=== PATIENT | male | born 1965 | race Caucasian/White ===

== ENCOUNTER 2019-06-24 05:14 | Day surgery (SDC) | payer OTHER ==
[2019-06-24 06:14] VITALS: BMI 21.1
[2019-06-24] MEDS ORDERED: SODIUM CHLORIDE 1,000 ML IV STA (07:11)
--- NOTE | 2019-06-24 08:06 | PDOC ---
History of Present Illness - General History Source: Patient Exam Limitations: No Limitations - History of Present Illness Initial Comments: 06/24/19 08:00 Patient is a 53-year-old male with no past medical history who presents to the ED with complaint of left lower abdominal and left groin pain that started several days ago. He states the pain was initially for a couple hours and resolved on its own. He had the pain again yesterday and it resolved again. Then the pain started again and has not resolved since. He denies any fevers or chills. He denies any radiation of his pain. He denies any pain in his testicles. He denies hematuria, dysuria, urgency or frequency. He has not taken anything for his pain. <Iesha Restrepo - Last Filed: 06/24/19 12:06> <Alvin Nunez - Last Filed: 06/24/19 15:29> - General Chief Complaint: Pain Stated Complaint: GROIN PAIN Time Seen by Provider: 06/24/19 07:07 Past History - Past Medical History COPD: No - Immunization History Immunization Up to Date: Yes - Psycho Social/Smoking Cessation Hx Smoking History: Never smoked Number of Cigarettes Smoked Daily: 0 Hx Alcohol Use: No Drug/Substance Use Hx: No Substance Use Type: None Hx Substance Use Treatment: No <Iesha Restrepo - Last Filed: 06/24/19 12:06> <Alvin Nunez - Last Filed: 06/24/19 15:29> - Past Medical History Allergies/Adverse Reactions: Allergies Allergy/AdvReac Type Severity Reaction Status Date / Time No Known Allergies Allergy Verified 06/24/19 07:55 Home Medications: Ambulatory Orders NK [No Known Home Medication] 06/24/19 Review of Systems - Review of Systems Comments:: 06/24/19 08:06 - Review of Systems Able to Perform ROS?: Yes Constitutional: No: Fever, Chills, Loss of Appetite, Night Sweats, Weakness HEENTM: No: Eye Pain, Vision changes, Ear Pain, Throat Pain, Throat Swelling, Mouth Pain, Difficulty Swallowing Respiratory: No: Cough, Shortness of Breath, Wheezing, Sputum Production Cardiac (ROS): No: Chest Pain, Chest Tightness, Palpitations, Irregular Heart Beat, Edema ABD/GI: No: Nausea, Vomiting, Diarrhea; positive left lower quadrant and left groin pain : No Dysuria, No Hematuria, No Frequency, No Urgency, No Penile Discharge/Pain Musculoskeletal: No: Muscle Pain, Back Pain, Joint Pain, Muscle Weakness, Neck Pain Integumentary: No: Lesions, Rash Neurological: No: Headache, Numbness, Tingling, Weakness, Speech Difficulties <KayeIesha D - Last Filed: 06/24/19 12:06> *Physical Exam - Vital Signs Last Vital Signs Temp Pulse Resp BP Pulse Ox 98.2 F 90 14 129/81 96 06/24/19 05:55 06/24/19 05:55 06/24/19 05:55 06/24/19 05:55 06/24/19 05:55 - Physical Exam 06/24/19 08:07 - Physical Exam General Appearance: Nourished, Appropriately Dressed, No Distress HEENT: EOMI, Normal Voice, No Pharyngeal Erythema, No Muffled/Hoarse voice, No Tonsillar Exudate, No Tonsillar Erythema, No Nasal Congestion, No Rhinorrhea, Hearing Grossly Normal, TMs Normal, No TM Bulging, No TM Dullness, No TM Erythema Neck: Supple, No Lymphadenopathy (R), No Lymphadenopathy (L), No Rigidity, No Decreased range of motion Respiratory/Chest: Lungs Clear, Normal Breath Sounds. No Respiratory Distress, No Accessory Muscle Use Cardiovascular: Regular Rhythm, Regular Rate, S1, S2 Gastrointestinal/Abdominal: Normal Bowel Sounds, Soft. No Guarding, No Rebound , No Rigidity; mild left lower quadrant and left groin tenderness to palpation. No tenderness to the left testicle and no masses palpated. No hernias appreciated. No CVA tenderness bilaterally. Musculoskeletal: Normal Inspection. No Decreased Range of Motion Extremity: Normal Capillary Refill, Normal Inspection Integumentary: Normal Color, Dry. 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 intact, Fully Oriented, Alert, Normal Mood/Affect, Normal Response <Iesha Restrepo - Last Filed: 06/24/19 12:06> - Vital Signs Last Vital Signs Temp Pulse Resp BP Pulse Ox 98.4 F 94 H 18 115/77 98 06/24/19 14:35 06/24/19 14:35 06/24/19 14:35 06/24/19 14:35 06/24/19 14:35 <Alvin Nunez - Last Filed: 06/24/19 15:29> ED Treatment Course - LABORATORY CBC & Chemistry Diagram: 06/24/19 07:44 06/24/19 07:44 - RADIOLOGY Radiology Studies Ordered: Category Date Time Status ABDOMEN & PELVIS CT WITH CONTR [CT] Stat CT Scan 06/24/19 07:12 Ordered <Iesha Restrepo - Last Filed: 06/24/19 12:06> - LABORATORY CBC & Chemistry Diagram: 06/24/19 07:44 06/24/19 07:44 - ADDITIONAL ORDERS Additional order review: Laboratory Results 06/24/19 06/24/19 06/24/19 07:44 07:44 07:44 Sodium 140 Potassium 4.2 Chloride 104 Carbon Dioxide 31 Anion Gap 5 L BUN 18.0 Creatinine 1.0 Est GFR (CKD-EPI)AfAm 97.77 Est GFR (CKD-EPI)NonAf 84.35 Random Glucose 106 Calcium 9.3 Total Bilirubin 0.5 AST 22 ALT 22 Alkaline Phosphatase 54 Total Protein 7.8 Albumin 4.0 Lipase 193 Urine Color Yellow Urine Appearance Clear Urine pH 5.5 Ur Specific [place] 1.015 Urine Protein Negative Urine Glucose (UA) Negative Urine Ketones Negative Urine Blood 3+ H Urine Nitrite Negative Urine Bilirubin Negative Urine Urobilinogen 0.2 Ur Leukocyte Esterase Negative Urine WBC (Auto) 1 Urine RBC (Auto) 78 Urine Casts (Auto) 1 U Epithel Cells (Auto) 0.1 Urine Bacteria (Auto) 2.7 06/24/19 07:44 RBC 5.17 MCV 90.1 MCHC 35.1 RDW 12.1 MPV 7.9 D Neutrophils % 73.2 Lymphocytes % 17.3 Monocytes % 8.8 Eosinophils % 0.4 D Basophils % 0.3 - Medications Given in the ED: ED Medications Discontinued Medications Generic Name Dose Route Start Last Admin Trade Name Freq PRN Reason Stop Dose Admin Sodium Chloride 1,000 mls @ 1,000 mls/hr 06/24/19 07:11 06/24/19 07:50 Normal Saline - IV 06/24/19 08:10 1,000 mls/hr ASDIR STA Administration <Alvin Nunez - Last Filed: 06/24/19 15:29> Medical Decision Making - Medical Decision Making 06/24/19 08:07 Assessment: Patient is a 53-year-old male who presents to the ED with left lower quadrant and left groin pain for the last several days. Plan: -Labs ordered -CT with contrast ordered -Will reassess 06/24/19 09:40 The patient has been made aware that his labs are all stable. He does have some blood in his urine but otherwise there is no infection. The patient's pain is okay at this time and he is declining pain medications. We will wait for CT scan for further evaluation. 06/24/19 11:06 Patient has been made aware that his CT scan shows an 8 mm stone with mild hydronephrosis and partially obstructing in the left distal ureter just proximal to the UVJ. The patient continues to decline pain medications at this time. patient services assistant urology has been paged to discuss the case. 06/24/19 12:06 We have spoken to Dr. Guzman of urology and he suggests the patient stay for possible stent placement vs lithotripsy. The patient agrees to stay in the hospital for this procedure. He has been made NPO. He has been made aware that he will go for the procedure and then likely be discharged after recovery this evening. The patient understands and agrees with this treatment and plan and he is stable for admission under Dr. Guzman' service. <Iesha Restrepo - Last Filed: 06/24/19 12:06> - Medical Decision Making 06/24/19 15:29 I reviewed the case of the mid-level practitioner and was available for consultation while in the emergency department <Alvin Nunez - Last Filed: 06/24/19 15:29> Discharge - Discharge Information Problems reviewed: Yes - Admission Yes <Iesha Restrepo - Last Filed: 06/24/19 12:06> <Alvin Nunez - Last Filed: 06/24/19 15:29> - Discharge Information Clinical Impression/Diagnosis: Ureterovesical junction (UVJ) obstruction Condition: Stable
[2019-06-24 08:33] LABS: BASO % 0.3 % (0-2.0); EOS % 0.4 % (0-4.5); HEMATOCRIT 46.6 % (35.4-49); HEMOGLOBIN 16.3 GM/dL (11.7-16.9); LYMPH % 17.3 % (8-40); MCH 31.6 pg (25.7-33.7); MCHC 35.1 g/dl (32.0-35.9); MEAN CELL VOLUME 90.1 fl (80-96); MEAN PLT VOLUME 7.9 fl (7.5-11.1); MONO % 8.8 % (3.8-10.2); NEUT % 73.2 % (42.8-82.8); PLATELET COUNT 343 K/MM3 (134-434); RBC 5.17 M/mm3 (4.00-5.60); RDW 12.1 % (11.9-15.9); WHITE BLOOD COUNT 8.4 K/mm3 (4.0-10.0)
[2019-06-24 08:41] LABS: BILIRUBIN,TOTAL 0.5 mg/dL (0.2-1); CALCIUM 9.3 mg/dL (8.5-10.1); POTASSIUM 4.2 mmol/L (3.5-5.1); TOT PROT 7.8 g/dl (6.4-8.2)
[2019-06-24 09:25] LABS: EPI CELLS 0.1 /HPF (0-5/HPF); HYALINE CASTS 1 /lpf (0-8); PH,URINE 5.5 (5.0-8.0); URINE APPEARANCE CLEAR; URINE BACTERIA 2.7 /hpf (NEGATIVE); URINE BILIRUBIN NEGATIVE (NEGATIVE); URINE COLOR YELLOW; URINE GLUCOSE (UA) NEGATIVE (NEGATIVE); URINE KETONE NEGATIVE (NEGATIVE); URINE LEUK ESTERASE NEGATIVE (NEGATIVE); URINE NITRITE NEGATIVE (NEGATIVE); URINE PROTEIN NEGATIVE (NEGATIVE); URINE RBC 78 /hpf (0-4); URINE UROBILINOGEN 0.2 mg/dL (0.2-1.0); URINE WBC 1 /hpf (0-5)
[2019-06-24] MEDS ORDERED: SODIUM CHLORIDE 0.9% 1000 ML INFUS.BAG IV SCH (14:45)
--- NOTE | 2019-06-24 15:14 | CON.GU ---
Consult Consult Specialty:: Referred by:: Enrique Reason for Consultation:: L ureteral calculus - History of Present Illness Chief Complaint: LLQ pain History of Present Illness: 53-year-old male with no past medical history who presents to the ED with complaint of left lower abdominal and left groin pain that started several days ago. He states the pain was initially for a couple hours and resolved on its own. He had the pain again yesterday and it resolved again. Then the pain started again and has not resolved since. He denies any fevers or chills. He denies any radiation of his pain. He denies any pain in his testicles. He denies hematuria, dysuria, urgency or frequency. He has not taken anything for his pain. cons req. - History Source History Provided By: Patient, Medical Record - Alcohol/Substance Use Hx Alcohol Use: No - Smoking History Smoking history: Never smoked Aproximately how many cigarettes per day: 0 Home Medications - Allergies Allergies/Adverse Reactions: Allergies Allergy/AdvReac Type Severity Reaction Status Date / Time No Known Allergies Allergy Verified 06/24/19 07:55 - Home Medications Home Medications: Ambulatory Orders NK [No Known Home Medication] 06/24/19 Review of Systems - Review of Systems Genitourinary: reports: Flank Pain Physical Exam- Vital Signs: Vital Signs Temperature 98.4 F 06/24/19 14:35 Pulse Rate 94 H 06/24/19 14:35 Respiratory Rate 18 06/24/19 14:35 Blood Pressure 115/77 06/24/19 14:35 O2 Sat by Pulse Oximetry (%) 98 06/24/19 14:35 Gastrointestinal: Yes: Soft, Tenderness, Rebound (LLQ) Kidneys: Yes: Flank Pain Left Pelvis: Yes: WNL Testicles: Yes: WNL Scrotum: Yes: WNL Penis: Yes: WNL Prostate Exam: Yes: WNL Labs: CBC, BMP 06/24/19 07:44 06/24/19 07:44 Imaging - Results Cat Scan: Report Reviewed, Image Reviewed Problem List - Problems (1) Ureteral calculus Assessment/Plan: rx tamsulosin, L ureteroscopic laser lithotripsy and JJ stent insertion Code(s): N20.1 - CALCULUS OF URETER (2) Hydronephrosis concurrent with and due to calculi of kidney and ureter Code(s): N13.2 - HYDRONEPHROSIS WITH RENAL AND URETERAL CALCULOUS OBSTRUCTION
--- NOTE | 2019-06-24 15:21 | OP ---
Operative Note - Note: Operative Date: 06/24/19 Pre-Operative Diagnosis: L ureteral calculus, L hydronephrosis Operation: L ureteroscopic laser lithotripsy and JJ stent insertion Findings: 8 mm L distal ureteral calculus, mild L hydronephrosis Post-Operative Diagnosis: Same as Pre-op Surgeon: Jimmie Guzman Anesthesiologist/BANKING OFFICER: Hermann Walton Anesthesia: General Specimens Removed: L ureteral calculus Estimated Blood Loss (mls): 0 Drains & Tubes with Location: 6 fr 26 cm L JJ stent Operative Report Dictated: Yes
[2019-06-24] MEDS ORDERED: PROPOFOL 20 ML ONE (15:32)
[2019-06-24] MEDS ORDERED: MIDAZOLAM HCL 2 MG/2 ML SINGLE DOSE VIAL ONE (15:33)
[2019-06-24] MEDS ORDERED: LIDOCAINE HCL/PF 2% SDV 5ML VIAL ONE ×2 (15:34→15:42)
[2019-06-24] MEDS ORDERED: SODIUM CHLORIDE 0.9% P/F 10 ML VIAL IJ ONE (15:46)
[2019-06-24] MEDS ORDERED: ceFAZolin SODIUM 1 GM VIAL ONE (15:46)
[2019-06-24] MEDS ORDERED: DEXAMETHASONE SOD PHOSPHATE 4 MG/1 ML VIAL ONE (15:50)
[2019-06-24] MEDS ORDERED: KETOROLAC TROMETHAMINE 30 MG/1 ML VIAL ONE (15:59)
[2019-06-24] MEDS ORDERED: ceFAZolin SODIUM 1 GM VIAL IVPB ONE (16:01)
[2019-06-24] MEDS ORDERED: ONDANSETRON 4 MG/2 ML VIAL IVPUSH PRN (16:46)
[2019-06-24] MEDS ORDERED: PROMETHAZINE HCL 25 MG/1 ML VIAL IVPUSH PRN (16:46)
[2019-06-24] MEDS ORDERED: LACTATED RINGERS SOLUTION 1,000 ML IV SCH (17:00)
--- NOTE | 2019-06-24 17:27 | OP ---
DATE OF OPERATION: 06/24/2019 PREOPERATIVE DIAGNOSIS: Left ureteral calculus, left hydronephrosis. POSTOPERATIVE DIAGNOSIS: Left ureteral calculus, left hydronephrosis. PROCEDURE: Left ureteroscopic laser lithotripsy and Double J stent insertion. SURGEON: Jimmie Estrada MD. SEROLOGY TEACHER: None. ANESTHESIA: General via laryngeal mask. ANESTHESIOLOGIST: Hermann Walton MD. SPECIMENS: Left ureteral calculi. CULTURES: None. DRAINS: 6 Norwegian 26-cm left Double J stent. ESTIMATED BLOOD LOSS: None. COMPLICATIONS: None. DESCRIPTION OF PROCEDURE: Patient was brought in the operating room, placed on the operating table in the supine position. After administration of general anesthesia via laryngeal mask, intravenous antibiotics were administered. Sequential compression devices were placed. The patient was placed in the dorsal lithotomy position. Genitals and peritoneum were prepped and draped in the usual sterile manner. A 22-Norwegian cystoscope was inserted in the bladder under direct vision. Anterior and posterior urethras were normal. The bladder was entered, and the urine was evacuated. A 30-degree was inserted. Cystoscopy was performed. This demonstrated no foreign body, tumor, stones, inflammation. Both ureteral orifices were in their usual location with diminished efflux in the left ureteral orifice. Left ureteral orifice was cannulated with 0.038 guidewire, advanced to the level of the left renal pelvis under direct visual and fluoroscopic guidance. Left ureteral calculus could not be seen under fluoroscopy. Now dual-lumen catheter was inserted, retrograde pyelogram was done confirming stent position in the left renal pelvis, mild left hydronephrosis and a filling defect left distal ureter. The dual lumen catheter was removed, bladder was emptied, cystoscope removed. Now the semirigid ureteroscope was inserted alongside the guidewire into the distal left ureter where a large stone was visualized. Using a 365 micron laser fiber, laser lithotripsy was done until the stone was fragmented into minute pieces. All these pieces were and removed. Retrograde pyelogram demonstrated a guidewire still coiled in the left renal pelvis, no extravasation of contrast, no more filling defects. Cystoscope was back loaded, and a 6-Norwegian, 26-cm left Double J stent was inserted over the guidewire under direct visual and fluoroscopic guidance, leaving 1 coil in the renal pelvis and 1 coil in the bladder. Bladder was emptied, cystoscope removed. The stent was secured to the penis with a suture and a Tegaderm. He tolerated procedure well, transferred to recovery in stable condition. JIMMIE ESTRADA M.D. [id number]
[2019-06-24 19:42] VITALS: BP 130/70; PULSE 84; TEMP 98.4
--- NOTE | 2019-06-26 10:20 | PATH ---
Surgical Pathology Report Patient Name: CASA TRIMBLE [facility]. Rec. #: [id number] /Age/Gender: 1965 (Age: 53) / M Account: [id number] Location: AMBULATORY SURG Taken: 06/24/2019 Received: 06/25/2019 Reported: 06/26/2019 Physicians: Jimmie Guzman M.D. Specimen(s) Received LEFT URETERAL STONE Clinical History Ureterovesical junction obstruction, left ureteral calculus, hydronephrosis Final Diagnosis URETERAL STONE, LEFT, LASER LITHOTRIPSY: URINARY LITHIASIS. MACROSCOPIC DIAGNOSIS. Electronically Signed Jud Miguel M.D. Gross Description Received fresh labeled "left ureteral stone," are 4 dale-brown, irregular calculi ranging from 0.1-0.3 cm in greatest dimension. The specimen is sent for chemical analysis. /06/25/2019 [facility]06/25/2019
[2019-07-16 09:10] LABS: WEIGHT 35.4
[2019-07-16 09:11] LABS: SIZE 4x3
[2019-07-16 09:12] LABS: CA OXALATE MONOHYDR. 88
== END 2019-06-24 19:35 | disposition home or self-care (01) ==
LOC: JER 05:14 → JASUSAT 12:08
PROVIDERS: ATTEND Urology
PROC: 0TF78ZZ Fragmentation in Left Ureter, Via Natural or Artificial Opening Endoscopic (ICD-10-PCS; principal; 2019-06-24 15:30)
PROC: 0T778DZ Dilation of Left Ureter with Intraluminal Device, Via Natural or Artificial Opening Endoscopic (ICD-10-PCS; 2019-06-24 15:30)
DX: N13.2 Hydronephrosis with renal and ureteral calculous obstruction (principal)
CPT/HCPCS: 36415; 74177-TC; 80053; 81003; 82360; 83690; 85025; 86704; 86706; 86707; 87086; 87350; 87389; 87522; 88300-TC; 94760; 99285-25; J7030; Q9967

== ENCOUNTER 2020-01-29 18:35 | Emergency (ER) | payer OTHER ==
[2020-01-29 18:44] VITALS: BP 141/80; PULSE 87; TEMP 97.8; BMI 21.2
--- OUTSIDE RECORDS SUMMARY | 2020-01-29 18:45 | XMS ---
:1965 Author Organization [facility] Support Name Relationship Address Phone FLICLAC CONTRACTOR Unavailable [address] [place] [address] MARVEL TRIMBLE SON [address] [place] [address] PAOLA TRIMBLE [address] [phone] [place] [address] Re-disclosure Warning The records that you are about to access may contain information from federally- assisted alcohol or drug abuse programs. If such information is present, then the following federally mandated warning applies: This information has been disclosed to you from records protected by federal confidentiality rules (42 CFR part 2). The federal rules prohibit you from making any further disclosure of this information unless further disclosure is expressly permitted by the written consent of the person to whom it pertains or as otherwise permitted by 42 CFR part 2. A general authorization for the release of medical or other information is NOT sufficient for this purpose. The Federal rules restrict any use of the information to criminally investigate or prosecute any alcohol or drug abuse patient.The records that you are about to access may contain highly sensitive health information, the redisclosure of which is protected by Article 27-F of the [facility] Public Health law. If you continue you may haveaccess to information: Regarding HIV / AIDS; Provided by facilities licensed or operated by the [facility] Office of Mental Health; or Provided by the [facility] Office for People With Developmental Disabilities. If such information is present, then the following [facility] mandated warning applies: This information has been disclosed to you from confidential records which are protected by state law. State law prohibits you from making any further disclosure of this information without the specific written consent of the person to whom it pertains, or as otherwise permitted by law. Any unauthorized further disclosure in violation of state law may result in a fine or mcc sentence or both. A general authorization for the release of medical or other information is NOT sufficient authorization for further disclosure. Insurance Providers Payer name Policy type Policy ID Covered Covered green party's Policy P era / Coverage green party ID relationship to Wilder Inf ormation type wilder [employer] [id number] 1 HEALTH PLANS
[2020-01-29] MEDS ORDERED: DIPHTH,PERTUSS(ACELL),TET 0.5 ML DISP.SYRIN IM ONE ×2 (19:38→19:39)
--- NOTE | 2020-01-29 19:38 | PDOC ---
History of Present Illness - General Chief Complaint: Laceration Stated Complaint: LEFT WRIST LACERATION Time Seen by Provider: 01/29/20 19:11 History Source: Patient Exam Limitations: No Limitations - History of Present Illness Initial Comments: 01/29/20 19:53 This is a 34-year-old male who was using a chop saw when he accidentally cut the posterior portion of his left wrist area. Patient's tetanus is unknown. Patient denies any decrease in range of motion or decrease in sensation distal to the laceration Allergies: as per nursing notes Past Medical History: none Social history: Lives with family. No smoking. No alcohol. No illicit drugs. Surgical history: None General: No fevers or chills, no weakness, no weight loss HEENT: No change in vision. No sore throat,. No ear pain CardioVascular: no chest discomfort. No shortness of breath Respiratory:No cough, or wheezing. Gastrointestinal: no nausea, vomiting, diarrhea or constipation, No rectal bleeding Genitourinary: No dysuria, hematuria, or frequency Musculoskeletal: No joint or muscle pain or swelling Neurologic: No headache, vertigo, dizziness or loss of consciousness Psychiatric: nor depression Skin: Laceration of left wrist Endocrine: no increased thirst or abnormal weight change Allergic: no skin or latex allergy All other systems reviewed and normal GENERAL: The patient is awake, alert, and fully oriented, in no acute distress. HEENT:Head is normal with no signs of trauma. Eyes: Pupils equal, round and reactive to light, Ears, and Throat are normal. Neck is supple. No Lymphadenopathy. EXTREMITIES:atraumatic, Normal range of motion, no edema. Left wrist/forearm dorsum: There is approximately 2 cm laceration neurovascular distally is intact patient has full range of motion as well as sensation NEUROLOGICAL: Normal speech, normal gait. PSYCH: Normal mood, normal affect. SKIN: Warm, Dry, normal turgor, no rashes or lesions noted. Procedure note laceration repair Laceration anesthetized with 1% lateral no epinephrine Small amount of devitalized tissue was trimmed away and laceration was irrigated with 100 cc of normal saline using a Zerowet Laceration was closed with a total of 4 sutures of 4-0 Ethilon Bacitracin and sterile Band-Aid were applied patient tolerated well Patient will return in 7 to 10 days for suture removal and patient's tetanus was updated Past History - Medical History Allergies/Adverse Reactions: Allergies Allergy/AdvReac Type Severity Reaction Status Date / Time No Known Allergies Allergy Verified 01/29/20 18:40 Home Medications: Ambulatory Orders NK [No Known Home Medication] 01/29/20 COPD: No Other medical history: DENIES - Immunization History Immunization Up to Date: Yes - Psycho-Social/Smoking History Smoking History: Never smoked Number of Cigarettes Smoked Daily: 0 Information on smoking cessation initiated: No - Substance Abuse Hx (Audit-C & DAST Scrn) How often the patient has a drink containing alcohol: Never Score: In Men: 4 or > Positive; In Women: 3 or > Positive: 0 Screen Result (Pos requires Nsg. Audit-10AR): Negative In the last yr the pt used illegal drug/Rx for NonMed reason: No Score: Yes response is considered Positive: 0 Screen Result (Positive result requires Nsg. DAST-10): Negative *Physical Exam - Vital Signs Last Vital Signs Temp Pulse Resp BP Pulse Ox 97.8 F 87 18 141/80 99 01/29/20 18:35 01/29/20 18:35 01/29/20 18:35 01/29/20 18:35 01/29/20 18:35 Discharge - Discharge Information Problems reviewed: Yes Clinical Impression/Diagnosis: Laceration of wrist Qualifiers: Encounter type: initial encounter Laterality: left Qualified Code(s): S61.512A - Laceration without foreign body of left wrist, initial encounter Condition: Stable Disposition: HOME - Admission No - Follow up/Referral - Patient Discharge Instructions Patient Printed Discharge Instructions: DI for Laceration Repair Additional Instructions: Suture removal in 7 to 10 days return to the ED for suture removal or see your primary care doctor. Keep the laceration clean and put some bacitracin on it and cover it with a Band-Aid if you are working in a dirty environment. Return to the emergency department immediately with ANY new, persistent or worsening symptoms. Continue any medications as previously prescribed by your physician. You should follow up with your primary doctor as soon as possible regarding today's emergency department visit. . Please make sure your doctor reviews the results of your emergency evaluation. Thank you for coming to the Emergency Department today for your care. It was a pleasure to see you today. Please note that your evaluation is INCOMPLETE until you follow-up with your doctor. - Post Discharge Activity
== END 2020-01-29 19:45 | disposition home or self-care (01) ==
LOC: FER 18:35
PROC: 3E0234Z Introduction of Serum, Toxoid and Vaccine into Muscle, Percutaneous Approach (ICD-10-PCS; principal; 2020-01-29)
DX: S61.512A Laceration without foreign body of left wrist, initial encounter (principal)
CPT/HCPCS: 90715; 99284-25

== ENCOUNTER 2020-02-08 17:09 | Emergency (ER) | payer OTHER ==
--- NOTE | 2020-02-08 17:43 | PDOC ---
Suture Removal/Wound Check HPI - History of Present Illness Chief Complaint: Suture/Staple Removal(Here) Stated Complaint: SUTURE REMOVAL Time Seen by Provider: 02/08/20 17:24 History Source: Yes: Patient Exam Limitations: Yes: No Limitations Treated at: [facility] [place] [facility] Date of Last ED visit: 01/29/20 - Previous ED Treatment Type of procedure performed on last visit: Yes: Laceration Repair Tetanus Immunization: Yes: Up to Date Past History - Medical History Allergies/Adverse Reactions: Allergies Allergy/AdvReac Type Severity Reaction Status Date / Time No Known Allergies Allergy Verified 01/29/20 18:40 Home Medications: Ambulatory Orders NK [No Known Home Medication] 01/29/20 COPD: No - Immunization History Immunization Up to Date: Yes - Psycho-Social/Smoking History Smoking History: Never smoked Number of Cigarettes Smoked Daily: 0 Suture Removal/Wound Check PE - Physical Exam Comments: 02/08/20 17:42 awake alert examination left wrist dorsum sutures CDI no erythema. x 4. Medical Decision Making - Medical Decision Making 02/08/20 17:43 54 yo male s/p laceration left dorsum of wrist 01/28, here for suture removal. no redness. no swelling. no discharge. sutures removed. tolerated well dc home. 02/08/20 17:45 Discharge - Discharge Information Problems reviewed: Yes Clinical Impression/Diagnosis: Visit for suture removal Condition: Improved Disposition: HOME - Admission No - Follow up/Referral - Patient Discharge Instructions Patient Printed Discharge Instructions: DI for Suture Removal - Post Discharge Activity
[2020-02-08 17:52] VITALS: BP 130/80; BMI 21.1
== END 2020-02-08 17:52 | disposition home or self-care (01) ==
LOC: FER 17:09
DX: Z48.02 Encounter for removal of sutures (principal)
CPT/HCPCS: 99281-25

== ENCOUNTER 2024-03-30 04:55 | Day surgery (SDC) | payer BC ==
[2024-03-25 08:50] VITALS: BMI 22.6
[2024-03-30 09:41] VITALS: RESP 18; TEMP 98.5
[2024-03-30 10:23] VITALS: BP 117/80; PULSE 85
== END 2024-03-30 10:24 | disposition home or self-care (01) ==
LOC: JASU-ENDO 04:55
PROVIDERS: ATTEND Internal Medicine Gastroenterology
PROC: 0DBL8ZX Excision of Transverse Colon, Via Natural or Artificial Opening Endoscopic, Diagnostic (ICD-10-PCS; 2024-03-30)
PROC: 0DBK8ZX Excision of Ascending Colon, Via Natural or Artificial Opening Endoscopic, Diagnostic (ICD-10-PCS; principal; 2024-03-30 09:00)
DX: Z12.11 Encounter for screening for malignant neoplasm of colon (principal); D12.3 Benign neoplasm of transverse colon; D12.2 Benign neoplasm of ascending colon; K64.8 Other hemorrhoids
CPT/HCPCS: 88305-TC